=== PATIENT | female | born 1980 | race Caucasian/White ===

== ENCOUNTER 2017-07-08 17:53 | Emergency (ER) | payer MEDICAID ==
[~2017-07-08] VITALS: Ht 167.6 cm; Wt 82.5 kg
[~2017-07-08 17:53] MED LIST: PRENAT PO
[2017-07-08 17:56] VITALS: Ht 167.6 cm; Wt 82.5 kg
[2017-07-08] MEDS ORDERED: ACETAMINOPHEN 325 MG TAB PO ONE (18:30)
[2017-07-08] MEDS ORDERED: SOD CHLORIDE 0.9% 1,000 ML IV ONE (18:30)
[2017-07-08 18:41] LABS: BASOPHIL # 0.1 10^3/ul (0.0-0.1); BASOPHILS % 0.5 % (0.0-2.0); EOSINOPHILS # 0.1 10^3/ul (0.0-0.5); EOSINOPHILS % 1.2 % (0.0-7.0); HEMATOCRIT 37.7 % (37.0-47.0); HEMOGLOBIN 12.5 g/dl (12.0-16.0); LYMPHOCYTES # 2.4 10^3/ul (0.8-2.9); LYMPHOCYTES % 25.1 % (15.0-51.0); MEAN CORPUSCULAR HEMOGLOBIN 27.7 pg (29.0-33.0); MEAN CORPUSCULAR HGB CONC 33.2 g/dl (32.0-37.0); MEAN CORPUSCULAR VOLUME 83.4 fl (82.0-101.0); MEAN PLATELET VOLUME 10.8 fl (7.4-10.4); MONOCYTE # 0.6 10^3/ul (0.3-0.9); MONOCYTES % 6.1 % (0.0-11.0); NEUTROPHIL # 6.2 10^3/ul (1.6-7.5); NEUTROPHILS % 65.3 % (39.0-77.0); PLATELET COUNT 293 10^3/UL (140-415); RED BLOOD COUNT 4.52 10^6/ul (4.20-5.40); RED CELL DISTRIBUTION WIDTH 13.8 % (11.5-14.5); WHITE BLOOD COUNT 9.5 10^3/ul (4.8-10.8)
[2017-07-08 18:48] LABS: ADD UMIC YES; UR AMORPHOUS CRYSTAL FEW /HPF (NONE SEEN); UR ASCORBIC ACID NEGATIVE (NEGATIVE); UR BACTERIA FEW /HPF (NONE SEEN); UR BILIRUBIN (Dip) NEGATIVE (NEGATIVE); UR BLOOD (Dip) 2+ mg/dL (NEGATIVE); UR CLARITY CLOUDY (CLEAR); UR COLOR YELLOW (YELLOW); UR GLUCOSE (Dip) NEGATIVE (NEGATIVE); UR KETONES (Dip) NEGATIVE (NEGATIVE); UR LEUKOCYTE ESTERASE (Dip) 2+ Leu/ul (NEGATIVE); UR NITRITE (Dip) NEGATIVE (NEGATIVE); UR RBC 3 /HPF (0-5); UR SPECIFIC GRAVITY (Dip) 1.014 (1.003-1.030); UR SQUAMOUS EPITHELIAL CELL FEW /HPF (FEW); UR TOTAL PROTEIN (Dip) NEGATIVE (NEGATIVE); UR UROBILINOGEN (Dip) NEGATIVE (NEGATIVE)
--- NOTE | 2017-07-08 19:26 | RADRPT ---
PROCEDURE: US OB. CLINICAL INDICATION: Maternal pelvic pain TECHNIQUE: Multiple sonographic images of the pelvis were obtained. The images were reviewed on a PACS workstation. COMPARISON: No prior studies are available for comparison. FINDINGS: The cervix is closed benign well seen. There is a single viable intrauterine gestation. Cardiac activity is present with 152 beats per min otoe-missouria. There is variable presentation. Measurements were made in order to determine age. The results are as follows: BPD = 3.28 cm HC = 11.7 cm AC = 10.5 cm FL = 2.23 cm. Estimated gestational age of approximately 16 weeks 2 days. The estimated date of delivery is December 21, 2017. The EFW = 157.9 g plus or minus 23.7 g or 6 ounces. This is in the 96 percentile . No anatomic abnormality is visualized. The placenta is anterior. There is no evidence for an abruption or placenta previa. There is a normal amount of amniotic fluid with an LUISA = 4.6 cm in the largest pocket. There are no adnexal masses. IMPRESSION: Single viable intrauterine gestation of approximately 16 weeks 2-day. The estimated date of deliver y is December 21, 2017. The weight is in the 96 percentile. Otherwise, no acute abnormality. RPTAT: EE .Mecca Mckeon MD, Date Time Electronically viewed and signed by .Mecca Mckeon MD, MD on 07/08/2017 19:25 .F/
--- NOTE | 2017-07-08 19:59 | RADRPT ---
PROCEDURE: US right upper quadrant CLINICAL INDICATION: Abdominal pain TECHNIQUE: Multiple real-time images were acquired of the patient's right upper abdomen utilizing a high resolution transducer. COMPARISON: None available FINDINGS: Liver: Diffuse increased echogenicity compatible with hepatic steatosis. No evidence of liver mass or ductal dilatation. Normal directional blood flow is seen within the patent main portal vein. The maximum dimension estimated at 17.9 cm . Gallbladder: Normal. No sonographic Wahl's sign is reported. Common bile duct: Normal; 4.8 mm. There is no evidence for choledocholithiasis. Right Kidney: Normal; maximum length measured at approximately 10.3 cm. Pancreas: Visualized portions are normal. The tail is partially obscured by bowel gas. RPTAT:HJJR IMPRESSION: Hepatic steatosis, otherwise unremarkable right upper quadrant ultrasound. Physician Walt Date Time Electronically viewed and signed by Physician Walt on 07/08/2017 19:59 /
[2017-07-08] MEDS ORDERED: ACET500C5 PO (20:20)
[2017-07-08] MEDS ORDERED: CEPH-443 PO (20:20)
--- NOTE | 2017-07-08 22:18 | ERD ---
ER Documentation Chief Complaint Date/Time DATE: 07/08/17 TIME: 22:15 Chief Complaint PT with AP X 3 hours, pt 4 months . HPI 37-year-old female patient with no significant past medical history presents to the ED complaining of abdominal pain that started 3 hours ago. Patient reports that she is currently . States that she is a . Reports that her last menstruation was on March 14, 2014 2017. States that she is nauseous but denies any vomiting. Reports that her RN NEONATAL ICU is Dr. Ho. Denies any vaginal bleeding, vaginal discharge, dysuria, urgency, frequency, chest pain, shortness of breath, flank pain. ROS All systems reviewed and are negative except as per history of present illness. Medications Home Meds Active Scripts Cephalexin* (Keflex*) 500 Mg Capsule, 500 MG PO QID for 7 Days, CAP Prov:KIMBERLY AGRAWAL PA-C 07/08/17 Acetaminophen* (Tylophen*) 500 Mg Capsule, 1 CAP PO Q6H Y for PAIN AND OR ELEVATED TEMP, #20 CAP Prov:KIMBERLY AGRAWAL PA-C 07/08/17 Reported Medications Multivit/Min/Fol Ac/Iron/Pren* ( S*) 1 Tab Tab, 1 TAB PO DAILY, TAB 05/09/16 Allergies Allergies: Coded Allergies: No Known Allergy (Unverified , 05/09/16) PMhx/Soc Medical and Surgical Hx: pt denies Medical Hx, pt denies Surgical Hx Hx Alcohol Use: No Hx Substance Use: No Hx Tobacco Use: No Smoking Status: Never smoker Physical Exam Vitals Vital Signs Date Time Temp Pulse Resp B/P Pulse Ox O2 Delivery O2 Flow Rate FiO2 07/08/17 17:56 98.2 83 18 112/66 100 Physical Exam Const: [id number]-[id number], well-nourished. In no acute distress. Head: Atraumatic, normocephalic Eyes: Normal Conjunctiva without injection. No purulent discharge. ENT: Normal external ear, nose. Moist oropharynx without tonsillar exudates. Non -erythematous pharynx. Uvula midline. No drooling. No trismus. Neck: No cervical midline tenderness. Full range of motion. No meningismus. No cervical lymphadenopathy. No JVD. Resp: Clear to auscultation bilaterally. No wheezing, rhonchi, rales, or crackles. No accessory muscle use. No retractions. Cardio: Regular rate and rhythm. No murmurs, rubs or gallops. Abd: Soft, nontender, non distended. Normal bowel sounds. No palpable masses. No rebound tenderness. No guarding. Negative McBurney's point. Negative psoas sign. Negative obturator sign. Skin: No petechiae or rashes Back: No midline tenderness. No CVA tenderness. Ext: No cyanosis, or edema. Neur: Awake and alert. Normal gait. Normal coordination. Psych: Normal Mood and Affect Result Diagram: 07/08/17 1830 Results 24 hrs Laboratory Tests Test 07/08/17 18:30 White Blood Count 9.510^3/ul Red Blood Count 4.5210^6/ul Hemoglobin 12.5g/dl Hematocrit 37.7% Mean Corpuscular Volume 83.4fl Mean Corpuscular Hemoglobin 27.7pg Mean Corpuscular Hemoglobin Concent 33.2g/dl Red Cell Distribution Width 13.8% Platelet Count 82637^3/UL Mean Platelet Volume 10.8fl Neutrophils % 65.3% Lymphocytes % 25.1% Monocytes % 6.1% Eosinophils % 1.2% Basophils % 0.5% Nucleated Red Blood Cells % 0.0/100WBC Neutrophils # 6.210^3/ul Lymphocytes # 2.410^3/ul Monocytes # 0.610^3/ul Eosinophils # 0.110^3/ul Basophils # 0.110^3/ul Nucleated Red Blood Cells # 0.010^3/ul Urine Color YELLOW Urine Clarity CLOUDY Urine pH 6.0 Urine Specific Lincoln 1.014 Urine Ketones NEGATIVEmg/dL Urine Nitrite NEGATIVEmg/dL Urine Bilirubin NEGATIVEmg/dL Urine Urobilinogen NEGATIVEmg/dL Urine Leukocyte Esterase 2+Andrea/ul Urine Microscopic RBC 3/HPF Urine Microscopic WBC 47/HPF Urine Squamous Epithelial Cells FEW/HPF Urine Amorphous Crystals FEW/HPF Urine Bacteria FEW/HPF Urine Hemoglobin 2+mg/dL Urine Glucose NEGATIVEmg/dL Urine Total Protein NEGATIVEmg/dl Beta HCG, Quantitative 25240.0mIU/ml Current Medications Medications (Trade) Dose Ordered Sig/Princess Route PRN Reason Start Time Stop Time Status Last Admin Dose Admin Acetaminophen 650 mg 650 mg ONCE ONCE PO 07/08/17 18:30 07/08/17 18:31 DC 07/08/17 18:48 Sodium Chloride (NS) 1,000 ml @ 1,000 mls/hr Q1H ONCE IV 07/08/17 18:30 07/08/17 19:29 DC 07/08/17 18:48 Procedures/MDM 37-year-old female patient who is a presents to the ED complaining of abdominal pain that started 3 hours ago. Patient is afebrile and nontoxic- appearing. Patient has normal vital signs. An ultrasound, beta-hCG, CBC, type and RH, UA was ordered to evaluate patient. CBC: No evidence of severe infection or anemia Urine: No elevation in nitrites, 2+ leukocyte esterase, hematuria. Rh: O positive. No indication for Rhogam at this time. beta Hc PROCEDURE: US right upper quadrant CLINICAL INDICATION: Abdominal pain TECHNIQUE: Multiple real-time images were acquired of the patient's right upper abdomen utilizing a high resolution transducer. COMPARISON: None available FINDINGS: Liver: Diffuse increased echogenicity compatible with hepatic steatosis. No evidence of liver mass or ductal dilatation. Normal directional blood flow is seen within the patent main portal vein. The maximum dimension estimated at 17.9 cm . Gallbladder: Normal. No sonographic Wahl's sign is reported. Common bile duct: Normal; 4.8 mm. There is no evidence for choledocholithiasis. Right Kidney: Normal; maximum length measured at approximately 10.3 cm. Pancreas: Visualized portions are normal. The tail is partially obscured by bowel gas. RPTAT:HJJR IMPRESSION: Hepatic steatosis, otherwise unremarkable right upper quadrant ultrasound. Patient's bleeding symptoms have stabilized while in the department. Patient will be treated for urinary tract infection. Low suspicion for symptomatic anemia, ectopic , sepsis, PID, appendicitis, ovarian torsion, nephrolithiasis, septic stone, tubo-ovarian abscess, surgical abdomen, or other emergent conditions. Patient was educated that there is a risk for threatened . Discharge medications: Keflex, Tylenol Patient to follow up with RN NEONATAL ICU in 2 days for further evaluation and treatment. Patient is to return sooner to the ED for any worsening symptoms. Patient's questions were answered. Patient understood and agreed with discharge plan. Departure Diagnosis: Primary Impression: Abdominal pain during Trimester: second trimester Qualified Code: O26.892 - Abdominal pain during in second trimester Condition: Stable Patient Instructions: Abdominal Pain, After Age 35, : Your Second Trimester Changes Referrals: [facility] ([facility]) [facility] YOU HAVE RECEIVED A MEDICAL SCREENING EXAM AND THE RESULTS INDICATE THAT YOU DO NOT HAVE A CONDITION THAT REQUIRES URGENT TREATMENT IN THE EMERGENCY DEPARTMENT. FURTHER EVALUATION AND TREATMENT OF YOUR CONDITION CAN WAIT UNTIL YOU ARE SEEN IN YOUR DOCTORS OFFICE WITHIN THE NEXT 1-2 DAYS. IT IS YOUR RESPONSIBILITY TO MAKE AN APPOINTMENT FOR FOLOW-UP CARE. IF YOU HAVE A PRIMARY DOCTOR --you should call your primary doctor and schedule an appointment IF YOU DO NOT HAVE A PRIMARY DOCTOR YOU CAN CALL OUR PHYSICIAN REFERRAL HOTLINE AT IF YOU CAN NOT AFFORD TO SEE A PHYSICIAN YOU CAN CHOSE FROM THE FOLLOWING [facility] [address] [facility] [address] [place] [address] [facility] [address] [facility] [address] [facility] [place] [address] [facility] [facility] [address] [facility]. [facility] YOU HAVE RECEIVED A MEDICAL SCREENING EXAM AND THE RESULTS INDICATE THAT YOU DO NOT HAVE A CONDITION THAT REQUIRES URGENT TREATMENT IN THE EMERGENCY DEPARTMENT. FURTHER EVALUATION AND TREATMENT OF YOUR CONDITION CAN WAIT UNTIL YOU ARE SEEN IN YOUR DOCTORS OFFICE WITHIN THE NEXT 1-2 DAYS. IT IS YOUR RESPONSIBILITY TO MAKE AN APPOINTMENT FOR FOLOW-UP CARE. IF YOU HAVE A PRIMARY DOCTOR --you should call your primary doctor and schedule and appointment IF YOU DO NOT HAVE A PRIMARY DOCTOR YOU CAN CALL OUR PHYSICIAN REFERRAL HOTLINE AT . IF YOU CAN NOT AFFORD TO SEE A PHYSICIAN YOU CAN CHOSE FROM THE FOLLOWING [facility]: [facility] [address] [place] [address] [facility] [address] [place] [address] [facility] [address] [place] [address] [facility]/SPECIALTIES RN NEONATAL [place] [address] [facility] [address] [place] [address] OFFICE FAX , [place] [address] [place] [address] DR. TRUONG, AFSHAN [address] [place] [address] DR [facility] [address] [address] [facility], [address], [place] [address] DR LASSITER, [facility] [address] [place] [address] [facility] [address] [place] [address] [address] [facility] [id number] - DR DAVIS, MARCEL [address], [place] [address] DR ABDUL, HAILEY [address] [facility], [place] [address] DR HONEYCUTT, FAR[place] [address] [place], [place] [id number] [facility] Hours: 8:00 am - 5:00 pm Additional Instructions: Llame al doctor MAANA y preeti iram GLENROY PARA DENTRO DE 2-3 PAULSON.Dgale a la secretaria que nosotros le instruimos hacer esta glenroy.Avise o llame si kramer condicin se empeora antes de la glenroy. Regresa aqui si peor o no mejor - para cualquier vmito, diarrea, dolor abdominal, sangrado vaginal, fiebre, empeoramiento de la etcetera. KIMBERLY AGRAWAL PA-C Jul 08, 2017 22:18
== END 2017-07-08 20:31 | disposition home or self-care (01) ==
LOC: FTE 17:53
DX: O26.892 Other specified pregnancy related conditions, second trimester (principal); R10.9 Unspecified abdominal pain; R10.2 Pelvic and perineal pain; Z3A.00 Weeks of gestation of pregnancy not specified
CPT/HCPCS: 36415; 76705; 76805; 81001; 84702; 85025; 86900; 86901; J7030; Z7502; Z7610

== ENCOUNTER 2017-10-11 16:34 | Outpatient (CLI) | END 2017-10-11 22:00 | disposition home or self-care (01) ==

== ENCOUNTER 2017-10-29 04:59 | Inpatient (IN) | END 2017-10-31 19:15 | disposition home or self-care (01) | DRG 775 ==

== ENCOUNTER 2018-12-26 17:10 | Emergency (ER) | payer MEDICAID ==
[~2018-12-26] VITALS: Ht 172.7 cm; Wt 81.8 kg
[~2018-12-26 17:10] MED LIST changes: +ACET500C5 PO; +BENZ-6 PO; +IRON1TAB78 PO; +OFLO5DRO46 LEFT EYE
[2018-12-26 17:17] VITALS: RESP 18; Ht 172.7 cm; Wt 81.8 kg
[2018-12-26 20:25] VITALS: BP 109/81; PULSE 74
--- NOTE | 2018-12-26 20:30 | ERD ---
ER Documentation Chief Complaint Chief Complaint LEFT ARM PAIN 2 DAYS HPI The patient is a 38-year-old female, presenting to the ER because of left arm pain for the last 2 days, worse with movement. She has been caring her 1-year-old and 2-year-old child frequently for the last couple days, complains of minimal neck discomfort. She denies fever, chills, neck pain, chest pain with vomiting/radiation/exertion/diaphoresis, dyspnea, abdominal pain, vomiting, dysuria, diarrhea. She does not smoke nor drink, just finished her menstrual period Medical/surgical history: None ROS All systems reviewed and are negative except as per history of present illness. Medications Home Meds Active Scripts Ibuprofen* (Motrin*) 600 Mg Tab, 600 MG PO Q6H PRN for PAIN AND OR ELEVATED TEMP, #20 TAB Prov:TATIANNA CADE MD 12/26/18 Ofloxacin* (Ocuflox*) 0.3%-5 Ml Ophth Drops, 1 DROP LEFT EYE QID for 7 Days, BOTTLE Prov:KIMBERLY AGRAWAL PA-C 11/19/18 Benzonatate* (Tessalon Perle*) 100 Mg Capsule, 100 MG PO Q8H PRN for COUGH, #20 CAP Prov:KIMBERLY AGRAWAL PA-C 11/19/18 Acetaminophen* (Tylophen*) 500 Mg Capsule, 1 CAP PO Q6H PRN for PAIN AND OR ELEVATED TEMP, #20 CAP Prov:KIMBERLY AGRAWAL PA-C 07/08/17 Reported Medications Iron,Carbonyl/Vit C/Vit B12/Fa (IRON 100 PLUS TABLET) 1 Each Tablet, 1 EACH PO DAILY, TAB 10/29/17 Multivit/Min/Fol Ac/Iron/Pren* ( S*) 1 Tab Tab, 1 TAB PO DAILY, TAB 05/09/16 Allergies Allergies: Coded Allergies: No Known Allergy (Unverified , 05/09/16) PMhx/Soc Hx Alcohol Use: No Hx Substance Use: No Hx Tobacco Use: No Physical Exam Vitals Vital Signs Date Temp Pulse Resp B/P (MAP) Pulse Ox O2 O2 Flow FiO2 Time Delivery Rate 12/26/18 74 109/81 100 Room Air 20:25 (90) 12/26/18 99.1 89 18 139/84 100 17:17 (102) Physical Exam Const: No acute distress. Head: Atraumatic. Eyes: Normal Conjunctiva. ENT: Normal External Ears, Nose and Mouth. Neck: Full range of motion. No meningismus. Resp: Clear to auscultation bilaterally. Cardio: Regular rate and rhythm. Abd: Soft, non distended, normal bowel sounds, non tender. Skin: No petechiae or rashes. Back: No midline or flank tenderness. Ext: No cyanosis, or edema. Neur: Awake and alert. No focal deficit Psych: Normal Mood and Affect. Results 24 hrs Laboratory Tests Test 12/26/18 22:12 POC Beta HCG, Qualitative NEGATIVE Current Medications Medications Dose Sig/Princess Start Time Status Last (Trade) Ordered Route PRN Stop Time Admin Dose Reason Admin Ketorolac 30 mg ONCE STAT 12/26/18 DC 12/26/18 Tromethamine IV 21:41 21:58 (Toradol) 12/26/18 21:42 Procedures/[place] [address] Rad[address] Line: [phone] DIAGNOSTIC IMAGING REPORT Patient: DARIAN ENRIQUEZ : 1980 Age: 38 Sex: F MR #: [id number] DOS: 12/26/182040 Ordering MD: TATIANNA CADE MD Location: E/R Room/Bed: PROCEDURE: XR Chest. CLINICAL INDICATION: chest pain TECHNIQUE: Single frontal view of the chest was obtained COMPARISON: None FINDINGS: The heart and mediastinum are within normal limits. The lungs are clear. There is no pleural effusion or pneumothorax. RPTAT: AA IMPRESSION: No acute disease. .Kevin Nye MD, Date Time Electronically viewed and signed by .Kevin Nye MD, on 12/26/2018 21:20 .S/ CC: TATIANNA CADE MD [phone] EKG: Read by emergency physician Rate/Rhythm: Normal Sinus Rhythm 81 beats/min QRS, ST, T-waves: No ST elevation, no T inversion, shorten RI Impression: Abnormal EKG MEDICAL MAKING DECISION: The patient is a 38-year-old female, presenting with acute left arm pain, most likely musculoskeletal in origin, was treated with Toradol 30 mg IV for pain with good response The differential diagnoses considered include but are not limited to strain, contusion, cervical radiculopathy, DVT Departure Diagnosis: Primary Impression: Myalgia Condition: Good Comments The patient's blood pressure was elevated (>120/80) but appears stable without e vidence of hypertension emergency or urgency. The patient was counseled about the risks of hypertension and urged to pursue outpatient monitoring and therapy within a week with their primary care physician. She was discharged with Motrin I discussed the findings with the patient. I advised the patient to follow-up with the primary physician in about 2-3 days, sooner if needed and return if any concern. Disclaimer: Inadvertent spelling and grammatical errors are likely due to EHR/dictation software use and do not reflect on the overall quality of patient care. Also, please note that the electronic time recorded on this note does not necessarily reflect the actual time of the patient encounter. TATIANNA CADE MD Dec 26, 2018 20:30
[2018-12-26] MEDS ORDERED: KETOROLAC 30 MG INJ IV STA (21:41)
[2018-12-26] MEDS ORDERED: IBUP-1542 PO (21:42)
== END 2018-12-26 22:15 | disposition home or self-care (01) ==
LOC: E/R 17:10
DX: M79.18 Myalgia, other site (principal)
CPT/HCPCS: 71045; 81025; 93005; 96374; J1885; Z7502